=== PATIENT | female | born 1995 | race Asian ===

== ENCOUNTER 2019-01-19 22:09 | Emergency (ER) | payer OTHER ==
--- NOTE | 2019-01-20 02:37 | ER Document Report ---
ED General - General Chief Complaint: Abdominal Pain Stated Complaint: ABDOMINAL PAIN Time Seen by Provider: 01/20/19 02:22 Primary Care Provider: REECE PALMER MD [ACTIVE STAFF] - Follow up as needed Mode of Arrival: Ambulatory TRAVEL OUTSIDE OF THE [place] IN LAST 30 DAYS: No - HPI Onset: Other - over the last few days Onset/Duration: Gradual Quality of pain: Burning Severity: Moderate Pain Level: 3 Associated symptoms: Other - burning with urination Exacerbated by: Other - urinating Relieved by: Denies Similar symptoms previously: No Recently seen / treated by doctor: No Notes: 23 year old female with no known PMH here for vaginal pain/burning sensation and pelvic pain for the last several days. The patient just flew here from [place] and she apparently saw an [facility] Doctor there where she was told she has a vaginal infection and she was prescribed a vaginal suppository which "starts with C and has a 2% in it." The patient says she was told she doesnt have BV or an STD. Based on this is sounds like the patient has a yeast infection. The patient says she used the suppository once and it caused her a lot of internal vaginal burning and pain. The patient wanted to be checked out in the ER to ensure she isnt having a serious reaction to the medication. - Related Data Allergies/Adverse Reactions: No Known Allergies Allergy (Unverified 01/20/19 02:52) Home Medications: supp prescribed for vag infection. no other meds Past Medical History - Social History Smoking Status: Never Smoker Chew tobacco use (# tins/day): No Frequency of alcohol use: Occasional Drug Abuse: None Family History: Reviewed & Not Pertinent Patient has suicidal ideation: No Patient has homicidal ideation: No - Medical History Medical History: Negative - Past Medical History Cardiac Medical History: Reports: None Pulmonary Medical History: Reports: None EENT Medical History: Reports: None Neurological Medical History: Reports: None Endocrine Medical History: Reports: None Renal/ Medical History: Reports: None Malignancy Medical History: Reports: None GI Medical History: Reports: None Musculoskeletal Medical History: Reports None Skin Medical History: Reports None Psychiatric Medical History: Reports: None Traumatic Medical History: Reports: None Infectious Medical History: Reports: None Surgical Hx: Negative Review of Systems - Review of Systems Constitutional: No symptoms reported EENT: No symptoms reported Cardiovascular: No symptoms reported Respiratory: No symptoms reported Gastrointestinal: No symptoms reported Genitourinary: Dysuria Female Genitourinary: Vaginal discharge, Other - vaginal burning and pain Musculoskeletal: No symptoms reported Skin: No symptoms reported Hematologic/Lymphatic: No symptoms reported Neurological/Psychological: No symptoms reported Physical Exam - Vital signs Vitals: Temp Pulse Resp BP Pulse Ox 98.4 F 78 20 127/70 H 99 01/19/19 22:15 01/19/19 22:15 01/19/19 22:15 01/19/19 22:15 01/19/19 22:15 - Notes Notes: GENERAL: Well-appearing, well-nourished and in no acute distress. HEAD: Atraumatic, normocephalic. EYES: Pupils equal round and reactive to light, extraocular movements intact, sclera anicteric, conjunctiva are normal. ENT: Nares patent, oropharynx clear without exudates. Moist mucous membranes. NECK: Normal range of motion, supple without lymphadenopathy or JVD. LUNGS: Breath sounds clear to auscultation bilaterally and equal. No wheezes rales or rhonchi. HEART: Regular rate and rhythm without murmurs, rubs or gallops. ABDOMEN: Soft, nontender, normoactive bowel sounds. No guarding, no rebound. No masses appreciated. EXTREMITIES: Normal range of motion, no pitting or edema. No clubbing or cyanosis. NEUROLOGICAL: Cranial nerves II through XII grossly intact. Normal speech, normal gait. PSYCH: Normal mood, normal affect. SKIN: Warm, Dry, normal turgor, no rashes or lesions noted. Course - Re-evaluation Re-evalutation: 01/20/19 03:56 The patient is here for vaginal burning. She says she had a pelvic exam in [place] by an [employer] and she was called in a vaginal suppository that "starts with C and has 2% in the name." It sounds like the patient must have a yeast infection as she was told she doesnt have a bacterial infection and her treatment sounds like an antifungal. Will treat with Diflucan since the patient says the treatment hurts her too much. No need to repeat a pelvic today. - Vital Signs Vital signs: Temp Pulse Resp BP Pulse Ox 98.4 F 78 20 127/70 H 99 01/19/19 22:22 01/19/19 22:22 01/19/19 22:22 01/19/19 22:22 01/19/19 22:22 - Laboratory Laboratory results interpreted by me: 01/20/19 02:50 Urine Urobilinogen 4.0 H Ur Leukocyte Esterase TRACE H Discharge - Discharge Clinical Impression: Vaginitis Qualifiers: Chronicity: acute Qualified Code(s): N76.0 - Acute vaginitis Condition: Stable Disposition: HOME, SELF-CARE Additional Instructions: Follow up with an [employer] Doctor if symptoms persist. Take the prescribed Diflucan in 3 days if your symptoms persist. Stop using the suppository medication you were previously prescribed. Call the [employer] doctor in [place] and ask what your diagnosis was based on your pelvic exam but it likely was a yeast infection. Prescriptions: Fluconazole [Diflucan 100 Mg Tablet] 100 mg PO DAILY #1 tablet Referrals: REECE PALMER MD [ACTIVE STAFF] - Follow up as needed
[2019-01-20 03:15] LABS: APPEARANCE,URINE SLIGHTLY-CLOUDY; BILIRUBIN,URINE NEGATIVE (NEGATIVE); COLOR,URINE YELLOW; GLUCOSE, URINE NEGATIVE (NEGATIVE); KETONES,URINE NEGATIVE (NEGATIVE); LEUKOCYTE ESTERASE,URINE TRACE (NEGATIVE); NITRITE,URINE NEGATIVE (NEGATIVE); PROTEIN,URINE NEGATIVE (NEGATIVE)
[2019-01-20] MEDS ORDERED: FLUCONAZOLE 100 MG TABLET PO ONE (03:56)
[2019-01-20 04:29] VITALS: BP 116/81
== END 2019-01-20 04:28 | disposition home or self-care (01) ==
LOC: ER 22:09
DX: N76.0 Acute vaginitis (principal); R30.0 Dysuria; R10.2 Pelvic and perineal pain
CPT/HCPCS: 81001; 81025; 99284

== ENCOUNTER 2019-01-23 09:42 | Emergency (ER) | payer OTHER ==
--- NOTE | 2019-01-23 10:29 | ER Document Report ---
ED Medical Screen (RME) - General Chief Complaint: Abdominal Pain Stated Complaint: ABDOMINAL PAIN Time Seen by Provider: 01/23/19 10:28 Mode of Arrival: Ambulatory Information source: Patient Notes: 23-year-old female presented to ED for complaint of right flank pain. She states she was seen at the doctor's office and they gave her some antibiotics for a vaginal infection from using scented toilet paper. She states she had a reaction to that so she came to the emergency room to get examined. She states they gave her a different antibiotic to help with the reactions from that and she still having the same pain in her right flank area and the skin is sensitive to touch on the right flank area. She states she does not have any vaginal bleeding any blood in the urine or any vaginal discharge. She denies any history of kidney stones. States she does not smoke she drinks maybe once a week denies any illicit drugs. Patient is very tender in the right upper back abdomen and pelvic area. I have greeted and performed a rapid initial assessment of this patient. A comprehensive ED assessment and evaluation of the patient, analysis of test results and completion of medical decision making process will be conducted by an additional ED providers. TRAVEL OUTSIDE OF THE [place] IN LAST 30 DAYS: No - Related Data Allergies/Adverse Reactions: No Known Allergies Allergy (Unverified 01/20/19 02:52) Physical Exam - Vital signs Vitals: Temp Pulse Resp BP Pulse Ox 97.9 F 63 16 117/63 99 01/23/19 10:09 01/23/19 10:09 01/23/19 10:01/23/19 10:01/23/19 10:09 Course - Vital Signs Vital signs: Temp Pulse Resp BP Pulse Ox 97.9 F 63 16 117/63 99 01/23/19 10:09 01/23/19 10:09 01/23/19 10:01/23/19 10:01/23/19 10:09
[2019-01-23 11:26] LABS: ABSOLUTE LYMPHOCYTES (AUTO) 1.4 10^3/uL (0.5-4.7); ABSOLUTE MONOCYTES (AUTO) 0.5 10^3/uL (0.1-1.4); ABSOLUTE NEUT (AUTO) 4.3 10^3/uL (1.7-8.2); BASOPHILS % (AUTO) 0.6 % (0-2); EOSINOPHILS % (AUTO) 0.5 % (0-6); HEMATOCRIT 38.8 % (36.0-47.0); HEMOGLOBIN 13.5 g/dL (12.0-15.5); LYMPHOCYTES % (AUTO) 22.5 % (13-45); MEAN CORPUSCULAR HGB CONC 34.8 g/dL (32.0-36.0); MEAN CORPUSCULAR VOLUME 92 fl (80-97); PLATELET COUNT 302 10^3/uL (150-450); RED BLOOD COUNT 4.22 10^6/uL (3.72-5.28); RED CELL DISTRIBUTION WIDTH 13.1 % (11.5-14.0); SEGMENTED NEUTROPHILS % (AUTO) 68.4 % (42-78); TOTAL CELLS COUNTED % (AUTO) 100 %; WHITE BLOOD COUNT 6.2 10^3/uL (4.0-10.5)
[2019-01-23 11:38] LABS: ALBUMIN 4.8 g/dL (3.5-5.0); ALKALINE PHOSPHATASE 68 U/L (38-126); ANION GAP 10 (5-19); APPEARANCE,URINE CLEAR; ASPARTATE AMINO TRANSFERASE 21 U/L (14-36); BILIRUBIN,TOTAL 1.3 mg/dL (0.2-1.3); BILIRUBIN,URINE NEGATIVE (NEGATIVE); BLOOD UREA NITROGEN 10 mg/dL (7-20); CALCIUM 9.9 mg/dL (8.4-10.2); CARBON DIOXIDE 25 mmol/L (22-30); CHLORIDE 104 mmol/L (98-107); COLOR,URINE YELLOW; GLUCOSE 90 mg/dL (75-110); GLUCOSE, URINE NEGATIVE (NEGATIVE); KETONES,URINE NEGATIVE (NEGATIVE); POTASSIUM 4.2 mmol/L (3.6-5.0); PROTEIN,URINE NEGATIVE (NEGATIVE); TOTAL PROTEIN 7.8 g/dL (6.3-8.2); UROBILINOGEN,URINE NEGATIVE mg/dL (<2.0)
--- NOTE | 2019-01-23 15:16 | ER Document Report ---
ED GI/ - General Chief Complaint: Flank Pain Stated Complaint: ABDOMINAL PAIN Time Seen by Provider: 01/23/19 10:28 Primary Care Provider: HOPE WINTER MD [EMERITUS] - Follow up as needed CIARA CARTWRIGHT MD [EMERITUS] - Follow up as needed REECE PALMER MD [ACTIVE STAFF] - Follow up as needed Mode of Arrival: Ambulatory Notes: 23-year-old female presented to ED for complaint of right flank pain. She states she was seen at the doctor's office and they gave her some antibiotics for a vaginal infection from using scented toilet paper. She states she had a reaction to that so she came to the emergency room to get examined. She states they gave her a different antibiotic to help with the reactions from that and she still having the same pain in her right flank area and the skin is sensitive to touch on the right flank area. She states she does not have any vaginal bleeding any blood in the urine or any vaginal discharge. She denies any history of kidney stones. TRAVEL OUTSIDE OF THE [place] IN LAST 30 DAYS: No - Related Data Allergies/Adverse Reactions: No Known Allergies Allergy (Unverified 01/20/19 02:52) Past Medical History - General Information source: Patient - Social History Smoking Status: Never Smoker Frequency of alcohol use: Occasional Family History: Reviewed & Not Pertinent Patient has suicidal ideation: No Patient has homicidal ideation: No - Medical History Medical History: Negative Past Surgical History: Reports: Hx Appendectomy - Immunizations Immunizations up to date: Yes Review of Systems - Review of Systems Constitutional: No symptoms reported. denies: Chills, Fever EENT: No symptoms reported Cardiovascular: No symptoms reported Respiratory: No symptoms reported Gastrointestinal: Abdominal pain. denies: Diarrhea, Vomiting, Constipation Genitourinary: Flank pain. denies: Dysuria, Frequency Female Genitourinary: No symptoms reported. denies: Vaginal discharge, Vaginal odor Musculoskeletal: No symptoms reported Skin: No symptoms reported Hematologic/Lymphatic: No symptoms reported Neurological/Psychological: No symptoms reported Physical Exam - Vital signs Vitals: Temp Pulse Resp BP Pulse Ox 97.9 F 63 16 117/63 99 01/23/19 10:09 01/23/19 10:01/23/19 10:01/23/19 10:01/23/19 10:09 - Notes Notes: PHYSICAL EXAMINATION: GENERAL: Well-appearing, well-nourished and in no acute distress. HEAD: Atraumatic, normocephalic. EYES: Pupils equal round and reactive to light, extraocular movements intact, conjunctiva are normal. ENT: Nares patent, oropharynx clear without exudates. Moist mucous membranes. NECK: Normal range of motion, supple without lymphadenopathy LUNGS: Breath sounds clear to auscultation bilaterally and equal. No wheezes rales or rhonchi. HEART: Regular rate and rhythm without murmurs ABDOMEN: Soft, mild tenderness in the right lower quadrant. No guarding, no r ebound. No masses appreciated. Female : deferred Musculoskeletal: Normal range of motion, no pitting or edema. No cyanosis. NEUROLOGICAL: Cranial nerves grossly intact. Normal speech, normal gait. Normal sensory, motor exams PSYCH: Normal mood, normal affect. SKIN: Warm, Dry, normal turgor, no rashes or lesions noted. Course - Re-evaluation Re-evalutation: Laboratory 01/23/19 01/23/19 01/23/19 11:02 11:02 11:02 WBC 6.2 RBC 4.22 Hgb 13.5 Hct 38.8 MCV 92 MCH 32.0 MCHC 34.8 RDW 13.1 Plt Count 302 Lymph % (Auto) 22.5 Cross % (Auto) 8.0 Eos % (Auto) 0.5 Baso % (Auto) 0.6 Absolute Neuts (auto) 4.3 Absolute Lymphs (auto) 1.4 Absolute Monos (auto) 0.5 Absolute Eos (auto) 0.0 Absolute Basos (auto) 0.0 Seg Neutrophils % 68.4 Sodium 139.0 Potassium 4.2 Chloride 104 Carbon Dioxide 25 Anion Gap 10 BUN 10 Creatinine 0.67 Est GFR ( Amer) > 60 Est GFR (MDRD) Non-Af > 60 Glucose 90 Calcium 9.9 Total Bilirubin 1.3 Direct Bilirubin 0.0 Neonat Total Bilirubin Not Reportable Neonat Direct Bilirubin Not Reportable Neonat Indirect Bili Not Reportable AST 21 ALT 11 Alkaline Phosphatase 68 Total Protein 7.8 Albumin 4.8 Serum HCG, Qual NEGATIVE Urine Color Urine Appearance Urine pH Ur Specific [place] Urine Protein Urine Glucose (UA) Urine Ketones Urine Blood Urine Nitrite (Reflex) Urine Bilirubin Urine Urobilinogen Leukocyte Esterase Rfl Urine RBC (Auto) Urine WBC (Reflex) Squamous Epi Cells Auto Urine Mucus (Auto) Urine Ascorbic Acid 01/23/19 11:02 WBC RBC Hgb Hct MCV MCH MCHC RDW Plt Count Lymph % (Auto) Cross % (Auto) Eos % (Auto) Baso % (Auto) Absolute Neuts (auto) Absolute Lymphs (auto) Absolute Monos (auto) Absolute Eos (auto) Absolute Basos (auto) Seg Neutrophils % Sodium Potassium Chloride Carbon Dioxide Anion Gap BUN Creatinine Est GFR ( Amer) Est GFR (MDRD) Non-Af Glucose Calcium Total Bilirubin Direct Bilirubin Neonat Total Bilirubin Neonat Direct Bilirubin Neonat Indirect Bili AST ALT Alkaline Phosphatase Total Protein Albumin Serum HCG, Qual Urine Color YELLOW Urine Appearance CLEAR Urine pH 6.0 Ur Specific [place] 1.020 Urine Protein NEGATIVE Urine Glucose (UA) NEGATIVE Urine Ketones NEGATIVE Urine Blood NEGATIVE Urine Nitrite (Reflex) NEGATIVE Urine Bilirubin NEGATIVE Urine Urobilinogen NEGATIVE Leukocyte Esterase Rfl NEGATIVE Urine RBC (Auto) 2 Urine WBC (Reflex) 1 Squamous Epi Cells Auto 5 Urine Mucus (Auto) OCC Urine Ascorbic Acid NEGATIVE Transvaginal US 01/23/19 13:16 IMPRESSION: NORMAL TRANSVAGINAL PELVIC ULTRASOUND. Patient appears well, nontoxic, vital signs within normal limits. Work-up today has been rather benign. Labs are unremarkable, no leukocytosis. Patient does have some tenderness upon palpation in the right lower quadrant which was suspicious for possibly an ovarian cyst. Patient has had a previous appen dectomy. Today the transvaginal pelvic ultrasound was unremarkable. No indication at this time for further work-up, patient was given strict ED return precautions to include worsening of her abdominal pain, development of fever, persistent vomiting or any other concerning symptom. She verbalized understanding of these return precautions. - Vital Signs Vital signs: Temp Pulse Resp BP Pulse Ox 98.4 F 72 14 129/66 H 98 01/23/19 13:51 01/23/19 16:28 01/23/19 16:28 01/23/19 16:28 01/23/19 16:28 - Laboratory Result Diagrams: 01/23/19 11:02 01/23/19 11:02 Discharge - Discharge Clinical Impression: Abdominal pain Qualifiers: Abdominal location: right lower quadrant Qualified Code(s): R10.31 - Right lower quadrant pain Condition: Stable Disposition: HOME, SELF-CARE Additional Instructions: Abdominal Pain There are many causes of abdominal pain. Pain can mean a serious problem requiring surgery (such as appendicitis). It can also be an innocent problem that goes away on its own (such as a viral infection). Often, time must pass to determine the cause of pain. The physician does not feel that hospitalization is necessary, at present. Things may change within the next 24 hours. Call the doctor or come back for re- examination if any problems occur, such as: (1) Pain that becomes more severe, steady, or becomes concentrated in one specific area. Also, pain that is more severe with movement or coughing. (2) Vomiting that persists or becomes more frequent. (3) Blood in the vomitus, urine, or bowel movements. Blood in the stool may have a tarry or black appearance. (4) Shaking chills or fever greater than 100 degrees F. (5) The abdomen becomes more distended or swollen. (6) Bowel movements cease. (7) Failure to improve as expected. All of your work-up today was reassuring. I think it is very important for you to follow-up with either primary care or [employer] for further evaluation of this pain. Return to the emergency department with any of the above symptoms. Take nausea medication as prescribed. Prescriptions: Ondansetron [Zofran Odt 4 mg Tablet] 1 - 2 tab PO Q4H PRN #15 tab.rapdis PRN Reason: For Nausea/Vomiting Forms: Return to Work Referrals: HOPE WINTER MD [EMERITUS] - Follow up as needed CIARA CARTWRIGHT MD [EMERITUS] - Follow up as needed REECE PALMER MD [ACTIVE STAFF] - Follow up as needed
--- NOTE | 2019-01-23 15:17 | RADIOLOGY REPORT (SQ) ---
EXAM DESCRIPTION: U/S NON OB PEL TV W/DOPPLER COMPLETED DATE/TIME: 01/23/2019 3:01 pm REASON FOR STUDY: RLQ pain COMPARISON: None. TECHNIQUE: Dynamic and static grayscale images acquired of the pelvis via transvaginal approach and recorded on PACS. Additional selected color Doppler and spectral images recorded. LIMITATIONS: None. FINDINGS: UTERUS: Contour normal. No mass. ENDOMETRIAL STRIPE: No focal or generalized thickening. No masses. CERVIX: No nabothian cysts. RIGHT OVARY AND DOPPLER: Normal size. No worrisome masses. Normal arterial vascular flow without evid ence for torsion. LEFT OVARY AND DOPPLER: Normal size. No worrisome masses. Normal arterial vascular flow without evide nce for torsion. FREE FLUID: None noted. OTHER: No other significant finding. IMPRESSION: NORMAL TRANSVAGINAL PELVIC ULTRASOUND. TECHNICAL DOCUMENTATION: JOB ID: [id number] [employer]- All Rights Reserved Rev Reading location - IP/workstation name: [email or web address]
[2019-01-23 16:28] VITALS: BP 129/66
== END 2019-01-23 16:34 | disposition home or self-care (01) ==
LOC: ER 09:42
DX: R10.31 Right lower quadrant pain (principal); R10.813 Right lower quadrant abdominal tenderness; R10.9 Unspecified abdominal pain; Z90.49 Acquired absence of other specified parts of digestive tract
CPT/HCPCS: 36415; 76830; 80053; 81001; 84703; 85025; 93976; 99284